=== PATIENT | female | born 1960 | race Caucasian/White ===

== ENCOUNTER 2018-09-04 17:00 | Emergency (ER) | payer OTHER ==
[2018-09-04 17:06] VITALS: BP 128/67
--- NOTE | 2018-09-04 17:21 | ER Document Report ---
HPI - HPI Patient complains to provider of: sunburn Time Seen by Provider: 09/04/18 17:12 Onset: Other - friday Quality of pain: Burning Pain Level: 4 Context: Patient presents today with complaints of sunburn. Reports she went to the beach on Friday to [place] and was wearing a tank top. She was sunburned due to that. She reports today when she was in the shower she had tiny little blisters her upper back and they popped and now she is peeling. she also report her right index finger had pus coming out of it by the nail bed. denies biting her nails. Denies other symptoms such as fever vomiting diarrhea. Associated Symptoms: None Exacerbated by: Denies Relieved by: Denies Similar symptoms previously: No Recently seen / treated by doctor: No Past Medical History - General Information source: Patient - Social History Smoking Status: Unknown if Ever Smoked Cigarette use (# per day): Yes Frequency of alcohol use: quit 2 months ago Drug Abuse: None Family History: None Patient has suicidal ideation: No Patient has homicidal ideation: No - Medical History Medical History: Negative - denies Surgical Hx: Negative - denies Vertical Provider Document - CONSTITUTIONAL Agree With Documented VS: Yes Exam Limitations: No Limitations General Appearance: WD/WN, No Apparent Distress - INFECTION CONTROL TRAVEL OUTSIDE OF THE [place] IN LAST 30 DAYS: No - HEENT HEENT: Atraumatic, Normocephalic - NECK Neck: Supple - RESPIRATORY Respiratory: No Respiratory Distress - CARDIOVASCULAR Cardiovascular: Regular Rate - MUSCULOSKELETAL/EXTREMETIES Musculoskeletal/Extremeties: MAEW, FROM, Tender - right index finger nail with erythema, no warmth, no swelling, no discharge. - NEURO Level of Consciousness: Awake, Alert, Appropriate Motor/Sensory: No Motor Deficit - DERM Integumentary: Warm, Dry Adult Front & Back Diagram: 1 - peeling, no vesicles, no open wounds, sunburn superficial noted. Course - Re-evaluation Re-evalutation: 09/04/18 17:27 Patient was instructed on the importance of avoiding sun for the next 2 weeks and to apply sunblock. Also discussed signs and symptoms of infection and to return here for any types of infection signs. Patient was also instructed to follow-up with her primary care provider within a week. She verbalized understanding to all instructions right index finger does not look infected she was instructed to soak not bite her nails (patient denies biting her nails) and return should she experience swelling pus discharge concerns. She verbalized understanding. - Vital Signs Vital signs: Temp Pulse Resp BP Pulse Ox 97.9 F 94 16 128/67 H 97 09/04/18 17:04 09/04/18 17:04 09/04/18 17:04 09/04/18 17:04 09/04/18 17:04 Discharge - Discharge Clinical Impression: sunburn Condition: Stable Disposition: HOME, SELF-CARE Instructions: Sunburn ([facility]) Additional Instructions: *You have been treated for a sunburn, fingernail irritation *avoid the sun, apply sunblock *monitor your skin for any signs of infection such as increased pain, redness, warmth Soak your finger, monitor your finger for swelling,for discharge, warmth Follow up with your primary care provider within one week *Return to ED for signs of infection, worsening condition, changes, needs Monitor your blood pressure. Your blood pressure was elevated today. This may be because you were anxious, in pain or because you need medication. It is important to follow up with your primary care provider for full evaluation. Forms: Elevated Blood Pressure
== END 2018-09-04 17:30 | disposition home or self-care (01) ==
LOC: ER 17:00
DX: L55.9 Sunburn, unspecified (principal); L60.9 Nail disorder, unspecified
CPT/HCPCS: 99282